=== PATIENT | male | born 1945 | race Caucasian/White ===

== ENCOUNTER 2024-10-23 18:10 | Emergency (ER) | payer MEDICARE, MEDICAID ==
[~2024-10-23] VITALS: Ht 170.2 cm; Wt 100.0 kg
[2024-10-23 18:12] VITALS: O2SAT 100
[2024-10-23] MEDS: NITROGLYCERIN 0.4MG TABLET SL SL PRN (18:56)
[2024-10-23] MEDS: ASPIRIN 81MG TABLET PO ONE (18:56)
[2024-10-23 19:00] LABS: BASOPHILS % 0.4 % (0.0-2.0); EOSINOPHILS % 4.5 % (0.0-5.0); HEMATOCRIT. 38.7 % (42.0-52.0); HEMOGLOBIN. 12.9 g/dL (14.0-18.0); LYMPHOCYTES % 29.1 % (20.0-50.0); MEAN CORPUSCULAR HGB CONC 33.4 g/dL (31.0-37.0); MEAN PLATELET VOLUME 6.8 fl (7.4-10.4); MONOCYTES % 6.6 % (2.0-8.0); NEUTROPHILS % 59.4 % (40.0-76.0); PLATELET 177 x1000/uL (130-400); RED CELL DISTRIBUTION WIDTH 15.7 % (11.6-14.6); WHITE BLOOD COUNT 7.1 x1000/uL (4.5-11.0)
[2024-10-23 19:02] VITALS: TEMP 36.72516
[2024-10-23 19:08] LABS: CHLORIDE 100 mEq/L (98-107); POTASSIUM 3.9 mEq/L (3.5-5.1); SODIUM 140 mEq/L (136-145)
[2024-10-23 19:09] LABS: CALCIUM 9.3 mg/dL (8.7-10.4); CARBON DIOXIDE 33 mEq/L (21-32)
[2024-10-23 19:14] LABS: CREATININE 0.8 mg/dL (0.6-1.3); GLUCOSE 175 mg/dL (70-105); UREA NITROGEN BLOOD 24 mg/dL (9-23)
[2024-10-23 19:16] LABS: TROPONIN I HIGH SENSITIVITY 4 ng/L (3.0-53)
[2024-10-23 20:00] LABS: CLARITY URINE CLEAR (CLEAR); COLOR URINE YELLOW (YELLOW); GLUCOSE URINE NEGATIVE (NEGATIVE); KETONES URINE NEGATIVE (NEGATIVE); LEUKOCYTE ESTERASE URINE NEGATIVE (NEGATIVE); NITRITE URINE NEGATIVE (NEGATIVE); OCCULT BLOOD URINE NEGATIVE (NEGATIVE); PH URINE 5.5 (4.5-8.0); PROTEIN URINE NEGATIVE (NEGATIVE); SPECIFIC GRAVITY URINE 1.019 (1.005-1.030); UROBILINOGEN URINE 0.2 E.U./dL (0.2-1.0)
[2024-10-23 21:29] LABS: TROPONIN I HIGH SENSITIVITY 4 ng/L (3.0-53)
[2024-10-23] MEDS ORDERED: ONDANSETRON HCL 4MG/2ML INJ IV PRN (23:15)
[2024-10-23] MEDS ORDERED: DOCUSATE SODIUM 100MG CAPSULE PO PRN (23:15)
[2024-10-23] MEDS ORDERED: IPRATROPIUM/ALBUTEROL 0.5-3(2.5)MG/3ML NEB NEB PRN (23:15)
[2024-10-23] MEDS ORDERED: NITROGLYCERIN 0.4MG TABLET SL SL PRN (23:15)
[2024-10-23] MEDS ORDERED: ENOXAPARIN 40MG/0.4ML SYR SUBCUT SCH (23:15)
[2024-10-23] MEDS ORDERED: ACETAMINOPHEN 325MG TABLET PO PRN (23:15)
[2024-10-23] MEDS ORDERED: MAGNESIUM/ALUMINUM HYDROXIDE/SIMETHICONE 30ML UDC PO PRN (23:15)
[2024-10-23] MEDS ORDERED: CLONIDINE 0.1MG TABLET PO PRN (23:15)
[2024-10-23] MEDS ORDERED: ACETAMINOPHEN 650MG/20.3ML UDC GT PRN (23:15)
[2024-10-23] MEDS ORDERED: KETOROLAC 15MG/ML VIAL IV PRN (23:15)
[2024-10-23] MEDS ORDERED: GUAIFENESIN 200MG/10ML SUGAR FREE UDC PO PRN (23:15)
[2024-10-23] MEDS ORDERED: ZOLPIDEM TARTRATE 5MG TABLET PO PRN (23:15)
[2024-10-23] MEDS ORDERED: DEXTROSE 50% WATER 50ML SYRINGE IV PRN (23:15)
[2024-10-24 00:11] LABS: IRON 69 ug/dL (65-175)
[2024-10-24 00:12] LABS: TRIGLYCERIDE 271 mg/dL (0-150)
[2024-10-24 00:13] LABS: LDL CHOLESTEROL 62 mg/dL (5-100)
[2024-10-24 00:14] LABS: CHOLESTEROL 150 mg/dL (<200); HDL CHOLESTEROL 52 mg/dL (>55); TOTAL IRON BINDING CAPACITY 304 ug/dl (250-425)
[2024-10-24 00:17] LABS: T4 FREE 1.06 ng/dL (0.89-1.76); THYROID STIMULATING HORMONE 2.41 uIU/mL (0.55-4.78)
[2024-10-24 00:22] LABS: FOLIC ACID (FOLATE) SERUM > 20.00 ng/mL (>5.38)
[2024-10-24 00:23] LABS: VITAMIN B12 SERUM 383 pg/mL (211-911)
[2024-10-24 01:22] VITALS: BP 123/70; PULSE 60; RESP 14; O2SAT 95
[2024-10-24] MEDS ORDERED: INSULIN LISPRO 100 UNITS/ML SUBCUT SCH (08:20)
[2024-10-24] MEDS ORDERED: ENOXAPARIN 30MG/0.3ML SYR SUBCUT SCH (09:00)
[2024-10-24] MEDS ORDERED: FAMOTIDINE 20MG TABLET PO SCH (09:00)
[2024-10-24] MEDS ORDERED: AMLODIPINE 10MG TABLET PO SCH (09:00)
[2024-10-24] MEDS ORDERED: METOPROLOL TARTRATE 25MG TABLET PO SCH (09:00)
[2024-10-24] MEDS ORDERED: METOPROLOL TARTRATE 5MG/5ML VIAL IV PRN (09:00)
[2024-10-24] MEDS ORDERED: ASPIRIN 325MG EC TABLET PO SCH (09:00)
[2024-10-24] MEDS ORDERED: BLOOD SUGAR DIAGNOSTIC STRIP TEST SCH (09:00)
[2024-10-26] MEDS ORDERED: ASPIRIN 81MG EC TABLET PO SCH (09:00)
== END 2024-10-24 22:07 | disposition home or self-care (01) ==
LOC: ER 18:10 → EDBEDREQTM 23:30 → EDBEDREQ 23:30 → ER 10-24 22:07
DX: R07.9 Chest pain, unspecified (principal); E11.9 Type 2 diabetes mellitus without complications; E78.00 Pure hypercholesterolemia, unspecified; I10 Essential (primary) hypertension; I25.10 Atherosclerotic heart disease of native coronary artery without angina pectoris; I45.10 Unspecified right bundle-branch block; Z79.82 Long term (current) use of aspirin
CPT/HCPCS: 36415; 71045; 80048; 80061; 81003; 82607; 82746; 83036; 83540; 83550; 83880; 84439; 84443; 84484; 85025; 93005; 93970; 99285